=== PATIENT | male | born 1950 | race Caucasian/White ===

== ENCOUNTER 2019-06-19 08:38 | Observation (INO) | payer MEDICARE, BC ==
[2019-06-18 13:48] LABS: BASOPHILS % (AUTO) 0.8 % (0-1); EOSINOPHILS # (AUTO) 0.2 X10'3 (0-0.9); HEMATOCRIT 44.4 % (42.0-52.0); HEMOGLOBIN 14.8 g/dl (14.0-17.9); LYMPHOCYTES # (AUTO) 1.9 X10'3 (1.1-4.8); LYMPHOCYTES % (AUTO) 29.5 % (21-51); MEAN CORPUSCULAR HEMOGLOBIN 30.7 PG (27.0-31.0); MEAN CORPUSCULAR HGB CONC 33.4 g/dL (33.0-36.5); MEAN CORPUSCULAR VOLUME 91.9 FL (78-98); MEAN PLATELET VOLUME 9.3 FL (7.4-10.4); MONOCYTES # (AUTO) 0.5 X10'3 (0-0.9); MONOCYTES % (AUTO) 7.4 % (2-12); NEUTROPHILS # (AUTO) 3.7 X10'3 (1.8-7.7); NEUTROPHILS % (AUTO) 58.3 % (42-75); PLATELET COUNT 207 X10'3 (140-440); RED BLOOD COUNT 4.83 X10'6 (4.70-6.10); RED CELL DISTRIBUTION WIDTH 13.7 % (11.5-14.5); WHITE BLOOD COUNT 6.3 X10'3 (4.5-11.0)
[2019-06-18 13:52] LABS: ALBUMIN 3.9 G/DL (3.4-5.0); ANION GAP 9 (8-16); BLOOD UREA NITROGEN 15 MG/DL (7-18); BUN/CREATININE RATIO 17.6 (5.4-32.0); CALCIUM 8.7 MG/DL (8.5-10.1); CHLORIDE 108 MMOL/L (99-107); CREATININE 0.85 MG/DL (0.60-1.10); GLUCOSE 97 MG/DL (70-104); POTASSIUM 3.7 MMOL/L (3.5-5.1); SODIUM 145 MMOL/L (135-145); TOTAL CARBON DIOXIDE 28.2 MMOL/L (24-32); eGFR 89 ML/MIN
[2019-06-18 13:56] LABS: PARTIAL THROMBOPLASTIN TIME 24 SECONDS (22-32)
[2019-06-19] VITALS (11 sets, daily range): BP systolic 120–189; BP diastolic 53–99
[~2019-06-19] VITALS: Ht 185.4 cm; Wt 100.6 kg
[~2019-06-19 08:38] MED LIST: ASPI81TA44 PO; ATOR10TA87 PO; CITA20TA28 PO; ESOM40CA PO; HCTZ25T PO; ISOS30TA9 PO; METO50TA7 PO; TRAM50TA2 PO; VALS1TAB2 PO; ZOLP12.543 PO
[2019-06-19] MEDS ORDERED: diphenhydrAMINE 25mg capsule PO PRN (08:50)
[2019-06-19] MEDS ORDERED: LORazepam 0.5 MG tablet PO PRN (08:50)
[2019-06-19] MEDS ORDERED: VALS1TAB79 PO (09:07)
[2019-06-19] MEDS ORDERED: LIDOcaine/PRILOcaine 5gm cream TP ONE (09:40)
[2019-06-19] MEDS: normal saline 1,000 ML IV SCH ×2 (09:43→18:50)
[2019-06-19] MEDS ORDERED: fentaNYL/PF 50MCG/1 ML 2ML syringe ONE (13:24)
[2019-06-19] MEDS ORDERED: iohexol 350MG/ML 100ml bottle IV ONE ×3 (13:24→15:09)
[2019-06-19] MEDS ORDERED: iohexol 350 MG/ML 50ML vial IV ONE (13:24)
[2019-06-19] MEDS ORDERED: LIDOcaine 1% (10mg/ml)w/preservative injection 20ml MDV ONE (13:24)
[2019-06-19] MEDS ORDERED: midazolam 2 mg/2 ml injection ONE (13:24)
[2019-06-19] MEDS ORDERED: heparin 1,000unit/ml 10ml vial 10 ML ONE (13:24)
[2019-06-19] MEDS ORDERED: nitroGLYCERIN-Tridil 50MG/D5W 250 ML IV ONE (13:24)
[2019-06-19] MEDS ORDERED: verapamil 2.5 mg/ml inj IV ONE (13:57)
[2019-06-19] MEDS ORDERED: heparin 25,000 UNIT/250ml bag 250 ML IV ONE (14:32)
[2019-06-19] MEDS ORDERED: heparin 1,000 UNITS/NS 500ml 500 ML ONE (15:10)
[2019-06-19] MEDS ORDERED: atropine 0.1mg/ml 10ml syringe ONE (15:30)
[2019-06-19] MEDS ORDERED: ticagrelor 90mg tablet ONE (15:55)
--- NOTE | 2019-06-19 18:29 | NUR ---
I have received report from ELISABETH PATE and had the opportunity to ask questions and assume patient care. AWAITING PATIENT ARRIVAL FROM SHORT STAY.
--- NOTE | 2019-06-19 18:30 | NUR ---
Pt transferred to Tele with belongings, report given.
--- NOTE | 2019-06-19 19:03 | NUR ---
Patient in room . I have received report from ELISABETH Steinberg and had the opportunity to ask questions and assume patient care. The patient arrived to telemetry at 1850. He is awake and stable. 2cc of air was taken out the fem stop for the radial artery. Will continue to monitor.
[2019-06-19 19:05] LABS: ISTAT HGB ART 13.9 g/dl (14.0-18.0); ISTAT Hct ART 41 %PCV (42-52); ISTAT O2 SATURATION ARTERIAL 95 % (95-98); ISTAT SOURCE ART
[2019-06-19 19:05] LABS: ISTAT Hct MIX 40 %PCV (42-52); ISTAT O2 SATURATION MIX VENOUS 71 % (60-80); ISTAT SOURCE MIX
--- NOTE | 2019-06-19 19:23 | NUR ---
Per Short Stay Nurse Pillar, RN Heparin was D/C at 1800.
--- NOTE | 2019-06-19 20:19 | NUR ---
Additional pressure held with 3cc air until 1999 on right radial artery.
--- NOTE | 2019-06-19 20:27 | NUR ---
Radial Cuff off @ 2014. Manual pressure 5 mins. No signs of bleeding. Pulses normal, will continue to monitor.
--- NOTE | 2019-06-19 23:07 | NUR ---
Notified by certified phlebotomy technician at 2307 that patient had several junctional beats and HR dipped down into 30s nonsustained. Will continue to monitor closely.
--- NOTE | 2019-06-20 00:44 | NUR ---
Attempted to call [facility] answering service. HR decreased to 31 nonsustained. Will try to call again.
--- NOTE | 2019-06-20 00:54 | NUR ---
Reached Dr. Villalta's answering service and spoke with Sugar and notified of patient condition. Will try again in 20 minutes if no return phone call.
--- NOTE | 2019-06-20 00:58 | NUR ---
Pawan returned phone call regarding patient heart rate. No new orders at this time. Will continue to monitor closely.
--- NOTE | 2019-06-20 01:20 | NUR ---
EKG 0115 2.6 sec pause, sinus bradycardia 42.
[2019-06-20 02:00] VITALS: BP 143/70
--- NOTE | 2019-06-20 04:32 | NUR ---
Student documentation: I have reviewed and agree with all interventions, assessments performed and documented by ELISABETH Vigil.
[2019-06-20 05:21] LABS: BASOPHILS % (AUTO) 0.4 % (0-1); EOSINOPHILS # (AUTO) 0.2 X10'3 (0-0.9); EOSINOPHILS % (AUTO) 2.5 % (0-6); HEMATOCRIT 44.1 % (42.0-52.0); HEMOGLOBIN 14.9 g/dl (14.0-17.9); LYMPHOCYTES # (AUTO) 1.4 X10'3 (1.1-4.8); LYMPHOCYTES % (AUTO) 17.4 % (21-51); MEAN CORPUSCULAR HEMOGLOBIN 30.5 PG (27.0-31.0); MEAN CORPUSCULAR HGB CONC 33.9 g/dL (33.0-36.5); MEAN CORPUSCULAR VOLUME 89.9 FL (78-98); MEAN PLATELET VOLUME 9.1 FL (7.4-10.4); MONOCYTES # (AUTO) 0.7 X10'3 (0-0.9); NEUTROPHILS # (AUTO) 5.9 X10'3 (1.8-7.7); NEUTROPHILS % (AUTO) 71.7 % (42-75); PLATELET COUNT 188 X10'3 (140-440); RED CELL DISTRIBUTION WIDTH 13.7 % (11.5-14.5); WHITE BLOOD COUNT 8.2 X10'3 (4.5-11.0)
[2019-06-20 05:45] LABS: ALBUMIN 3.6 G/DL (3.4-5.0); ANION GAP 10 (8-16); BLOOD UREA NITROGEN 13 MG/DL (7-18); BUN/CREATININE RATIO 15.3 (5.4-32.0); CALCIUM 8.8 MG/DL (8.5-10.1); CHLORIDE 109 MMOL/L (99-107); CREATININE 0.85 MG/DL (0.60-1.10); GLUCOSE 105 MG/DL (70-104); POTASSIUM 3.4 MMOL/L (3.5-5.1); SODIUM 145 MMOL/L (135-145); TOTAL CARBON DIOXIDE 25.8 MMOL/L (24-32); eGFR 89 ML/MIN
[2019-06-20 06:00] VITALS: BP 130/82
--- NOTE | 2019-06-20 06:15 | NUR ---
Problems reprioritized. Patient report given, questions answered & plan of care reviewed with ELISABETH Young.
--- NOTE | 2019-06-20 06:18 | NUR ---
Patient in room PCU 3025. I have received report from Yaritza BARBER and Bill RN and had the opportunity to ask questions and assume patient care. Pt is awake in bed, all needs met at this time, will continue to monitor.
[2019-06-20] MEDS ORDERED: pantoprazole 40mg Tablet.DR PO SCH (07:30)
[2019-06-20] MEDS ORDERED: HYDROchlorothiazide 12.5mg capsule PO SCH (08:00)
[2019-06-20] MEDS ORDERED: clopidogrel 75mg tablet PO SCH (08:00)
[2019-06-20] MEDS ORDERED: aspirin 325mg tablet, delayed-release (Ecotrin) PO SCH (08:00)
[2019-06-20] MEDS ORDERED: metoprolol succinate 25mg (24-HOUR) SR. Tablet PO SCH (08:00)
[2019-06-20] MEDS ORDERED: atorvastatin 10mg tablet PO SCH (08:00)
[2019-06-20] MEDS ORDERED: losartan 50mg tablet PO SCH (08:00)
[2019-06-20] MEDS ORDERED: ATOR20TA PO (09:29)
[2019-06-20] MEDS ORDERED: TICA90TA PO (09:29)
[2019-06-20] MEDS ORDERED: METO-395 PO (10:20)
--- NOTE | 2019-06-20 11:08 | NUR ---
Pt is stable for discharge per md order, Discharge instructions reviewed w/ pt and spouse, all questions answered, new medication prescription called in to [facility] per pt preference, Tele box 57 removed and returned, PIV dc'ed and clean dry dressing in place, pt wheeled down to lobby with hospital staff, pt discharged to home @ 1100am w/ spouse in private vehicle, all belongings taken with pt at time of discharge.
[2019-06-21] MEDS ORDERED: aspirin 81mg tablet.DR PO SCH (08:00)
== END 2019-06-20 11:00 | disposition home or self-care (01) ==
LOC: SSTAY O 08:38 → PCU 3S 19:14
PROVIDERS: ADMIT Internal Medicine Cardiovascular Disease; ATTEND Internal Medicine Cardiovascular Disease
DX: I25.10 Atherosclerotic heart disease of native coronary artery without angina pectoris (principal); R55 Syncope and collapse; E78.5 Hyperlipidemia, unspecified; R42 Dizziness and giddiness; I10 Essential (primary) hypertension; I47.1 Supraventricular tachycardia; E66.3 Overweight; G47.33 Obstructive sleep apnea (adult) (pediatric); G62.9 Polyneuropathy, unspecified; R06.02 Shortness of breath; R53.83 Other fatigue; F32.9 Major depressive disorder, single episode, unspecified; Z79.899 Other long term (current) drug therapy; Z98.890 Other specified postprocedural states
CPT/HCPCS: 36415; 80048; 82803; 85014; 85025; 85347; 85610; 85730; 87081; 93005; 93460; 96360; 96361; C1725; C1769; C1874; C1892; C1894; C9600; G0378; J0461; J1644; J2001; J2250; J3010; J7030; Q0163; Q9967; 99152; 99153; A4620; J3490

== ENCOUNTER 2019-07-04 11:37 | Outpatient (CLI) | payer MEDICARE, BC ==
[~2019-07-04 11:37] MED LIST changes: -ATOR10TA87 PO; +ATOR20TA PO; -CITA20TA28 PO; -HCTZ25T PO; -ISOS30TA9 PO; +METO-395 PO; -METO50TA7 PO; +TICA90TA PO; -TRAM50TA2 PO; -VALS1TAB2 PO; +VALS1TAB79 PO; -ZOLP12.543 PO
[2019-07-04 12:16] LABS: ANION GAP 10 (8-16); BLOOD UREA NITROGEN 11 MG/DL (7-18); BUN/CREATININE RATIO 12.5 (5.4-32.0); CALCIUM 9.3 MG/DL (8.5-10.1); CHLORIDE 107 MMOL/L (99-107); CREATININE 0.88 MG/DL (0.60-1.10); GLUCOSE 102 MG/DL (70-104); POTASSIUM 3.8 MMOL/L (3.5-5.1); SODIUM 143 MMOL/L (135-145); TOTAL CARBON DIOXIDE 26.3 MMOL/L (24-32); eGFR 86 ML/MIN
== END 2019-07-04 23:59 | disposition home or self-care (01) ==
LOC: LAB 11:37
PROVIDERS: ATTEND Internal Medicine Cardiovascular Disease
DX: R06.02 Shortness of breath (principal)
CPT/HCPCS: 36415; 80048; 83880

== ENCOUNTER 2020-10-15 06:03 | Day surgery (SDC) | payer MEDICARE, BC ==
[2020-10-14 11:52] LABS: BASOPHILS # (AUTO) 0.1 X10'3 (0-0.2); BASOPHILS % (AUTO) 0.8 % (0-1); EOSINOPHILS # (AUTO) 0.2 X10'3 (0-0.9); EOSINOPHILS % (AUTO) 2.5 % (0-6); HEMATOCRIT 44.7 % (42.0-52.0); LYMPHOCYTES # (AUTO) 1.5 X10'3 (1.1-4.8); LYMPHOCYTES % (AUTO) 21.6 % (21-51); MEAN CORPUSCULAR HEMOGLOBIN 30.5 PG (27.0-31.0); MEAN CORPUSCULAR HGB CONC 33.5 g/dL (33.0-36.5); MEAN CORPUSCULAR VOLUME 91.1 FL (78-98); MEAN PLATELET VOLUME 9.1 FL (7.4-10.4); MONOCYTES # (AUTO) 0.6 X10'3 (0-0.9); MONOCYTES % (AUTO) 8.2 % (2-12); NEUTROPHILS # (AUTO) 4.8 X10'3 (1.8-7.7); NEUTROPHILS % (AUTO) 66.9 % (42-75); PLATELET COUNT 193 X10'3 (140-440); RED BLOOD COUNT 4.91 X10'6 (4.70-6.10); RED CELL DISTRIBUTION WIDTH 13.7 % (11.5-14.5); WHITE BLOOD COUNT 7.1 X10'3 (4.5-11.0)
[2020-10-14 11:59] LABS: ALBUMIN 4.1 G/DL (3.4-5.0); ANION GAP 8 (8-16); BLOOD UREA NITROGEN 19 MG/DL (7-18); BUN/CREATININE RATIO 21.3 (5.4-32.0); CALCIUM 9.4 MG/DL (8.5-10.1); CHLORIDE 108 MMOL/L (99-107); CREATININE 0.89 MG/DL (0.60-1.10); GLUCOSE 102 MG/DL (70-104); POTASSIUM 3.8 MMOL/L (3.5-5.1); SODIUM 146 MMOL/L (135-145); TOTAL CARBON DIOXIDE 30.3 MMOL/L (24-32); eGFR 85 ML/MIN
[2020-10-14 12:04] LABS: PARTIAL THROMBOPLASTIN TIME 25 SECONDS (22-32)
[~2020-10-15] VITALS: Ht 180.3 cm; Wt 96.8 kg
[2020-10-15] VITALS (11 sets, daily range): BP systolic 106–142; BP diastolic 56–79
[~2020-10-15 06:03] MED LIST changes: -ATOR20TA PO; -VALS1TAB79 PO; +VALS1TAB80 PO
[2020-10-15] MEDS ORDERED: ceFAZolin 2gm in dextrose, iso 50 ML IV ONE (06:25)
[2020-10-15] MEDS ORDERED: METO-539 PO (06:49)
[2020-10-15] MEDS ORDERED: CYAN5000 SL (06:51)
[2020-10-15] MEDS ORDERED: ATOR20TA PO (06:53)
[2020-10-15] MEDS ORDERED: METF500T PO (07:00)
[2020-10-15] MEDS ORDERED: CLOP75TA15 PO (07:01)
[2020-10-15] MEDS ORDERED: FLO0.4C PO (07:03)
[2020-10-15] MEDS ORDERED: midazolam 2 mg/2 ml injection ONE ×2 (07:21→08:26)
[2020-10-15] MEDS ORDERED: fentaNYL/PF 50MCG/1 ML 2ML syringe ONE ×3 (07:21→09:18)
[2020-10-15] MEDS ORDERED: LIDOcaine 1% W/epiNEPHrine 1:100,000 20ml vial ONE ×2 (07:21→08:26)
[2020-10-15] MEDS ORDERED: ceFAZolin 1000mg inj ONE (07:22)
[2020-10-15] MEDS ORDERED: vancomycin/NS 1 GM ADD-VANTAGE 250 ML X 1 DOSE IV ONE (11:00)
[2020-10-15] MEDS ORDERED: HYDROcodone/acetaminophen 5mg/325mg tablet PO PRN (11:10)
[2020-10-15] MEDS ORDERED: acetaminophen 325mg tablet PO PRN (11:10)
[2020-10-15] MEDS ORDERED: HYDROcodone/acetaminophen 10/325mg tab PO PRN (11:10)
== END 2020-10-15 15:00 | disposition home or self-care (01) ==
LOC: SSTAY O 06:03
PROVIDERS: ATTEND Internal Medicine Cardiovascular Disease
DX: I49.5 Sick sinus syndrome (principal); I25.10 Atherosclerotic heart disease of native coronary artery without angina pectoris; I10 Essential (primary) hypertension; E78.5 Hyperlipidemia, unspecified; I48.0 Paroxysmal atrial fibrillation; G47.33 Obstructive sleep apnea (adult) (pediatric); E11.40 Type 2 diabetes mellitus with diabetic neuropathy, unspecified; F32.9 Major depressive disorder, single episode, unspecified; E66.9 Obesity, unspecified; Z68.31 Body mass index [BMI] 31.0-31.9, adult; G62.9 Polyneuropathy, unspecified; Z95.5 Presence of coronary angioplasty implant and graft; Z79.84 Long term (current) use of oral hypoglycemic drugs; Z79.01 Long term (current) use of anticoagulants; Z79.899 Other long term (current) drug therapy; Z98.890 Other specified postprocedural states; Z82.49 Family history of ischemic heart disease and other diseases of the circulatory system; Z83.6 Family history of other diseases of the respiratory system
CPT/HCPCS: 33208; 36415; 71046; 80048; 82948; 85025; 85610; 85730; 93005; 99152; 99153; C1785; C1894; C1898; J0690; J2250; J3010; J3370; A4565; A4620; A6449

== ENCOUNTER 2021-01-06 16:40 | Emergency (ER) | payer OTHER, MEDICARE, BC ==
[~2021-01-06] VITALS: Ht 180.3 cm; Wt 95.5 kg
[~2021-01-06 16:40] MED LIST changes: -ASPI81TA44 PO; +ATOR20TA PO; +CLOP75TA15 PO; +CYAN5000 SL; -ESOM40CA PO; +FLO0.4C PO; +METF500T PO; -METO-395 PO; +METO-539 PO; -TICA90TA PO
[2021-01-06 17:55] LABS: BASOPHILS # (AUTO) 0.1 X10'3 (0-0.2); BASOPHILS % (AUTO) 0.6 % (0-1); EOSINOPHILS # (AUTO) 0.1 X10'3 (0-0.9); EOSINOPHILS % (AUTO) 0.8 % (0-6); HEMATOCRIT 43.3 % (42.0-52.0); HEMOGLOBIN 14.4 g/dl (14.0-17.9); LYMPHOCYTES # (AUTO) 0.8 X10'3 (1.1-4.8); LYMPHOCYTES % (AUTO) 8.5 % (21-51); MEAN CORPUSCULAR HEMOGLOBIN 30.1 PG (27.0-31.0); MEAN CORPUSCULAR HGB CONC 33.1 g/dL (33.0-36.5); MEAN CORPUSCULAR VOLUME 90.8 FL (78-98); MEAN PLATELET VOLUME 8.6 FL (7.4-10.4); MONOCYTES # (AUTO) 0.4 X10'3 (0-0.9); MONOCYTES % (AUTO) 4.8 % (2-12); NEUTROPHILS % (AUTO) 85.3 % (42-75); PLATELET COUNT 223 X10'3 (140-440); RED BLOOD COUNT 4.77 X10'6 (4.70-6.10); RED CELL DISTRIBUTION WIDTH 13.9 % (11.5-14.5); WHITE BLOOD COUNT 9.3 X10'3 (4.5-11.0)
[2021-01-06 18:09] LABS: ALANINE AMINOTRANSFERASE 46 U/L (12-78); ALBUMIN 4.1 G/DL (3.4-5.0); ALBUMIN/GLOBULIN RATIO 1.3 (1.1-1.5); ALKALINE PHOSPHATASE 63 IU/L (46-116); ANION GAP 11 (8-16); ASPARTATE AMINO TRANSFERASE 36 U/L (10-37); BLOOD UREA NITROGEN 24 MG/DL (7-18); CALCIUM 9.1 MG/DL (8.5-10.1); CHLORIDE 107 MMOL/L (99-107); GLUCOSE 125 MG/DL (70-104); POTASSIUM 3.9 MMOL/L (3.5-5.1); SODIUM 146 MMOL/L (135-145); TOTAL CARBON DIOXIDE 27.9 MMOL/L (24-32); TOTAL PROTEIN 7.3 G/DL (6.4-8.2); eGFR 74 ML/MIN
[2021-01-06] MEDS ORDERED: normal saline 1000ml 1,000 ML IV ONE ×2 (18:35→20:10)
[2021-01-06] MEDS ORDERED: ondansetron/PF 4mg/2ml inj IV ONE (18:35)
[2021-01-06] MEDS ORDERED: morphine 4 MG/ML inj SYRINge IV ONE (18:35)
--- NOTE | 2021-01-06 19:54 | NUR ---
yaneth standing at bedside attempting to urinate, yaneth received 1 liter of ns
--- NOTE | 2021-01-06 20:06 | NUR ---
patietn unable to void
[2021-01-06 21:51] LABS: CLARITY,URINE SLIGHTLY CLOUDY (Clear); COLOR,URINE YELLOW (Yellow); GLUCOSE, URINE NEGATIVE (Neg); KETONES,URINE 15 mg/dl (Neg); LEUKOCYTE ESTERASE ,URINE NEGATIVE (Neg); NITRITES, URINE NEGATIVE (Neg); OCCULT BLOOD,URINE SMALL (Neg); PH,URINE 5.5 (4.8-8.0); PROTEIN,URINE NEGATIVE (Neg); UROBILINOGEN,URINE 0.2 E.U/dL (0.2-1.0)
[2021-01-06 22:05] LABS: UA COLLECTION TYPE STRAIGHT CATH
[2021-01-06 22:06] LABS: WBC,URINE 0-4 /HPF (0-4)
[2021-01-06 22:07] LABS: BACTERIA,URINE NONE SEEN /HPF (Neg); SQUAMOUS EPITHELIAL CELL,UR FEW /LPF (FEW)
[2021-01-06] MEDS ORDERED: HYDR-3965 PO (22:14)
[2021-01-06] MEDS ORDERED: ONDA4TAB6 PO (22:14)
[2021-01-06] MEDS ORDERED: FLO0.4C PO (22:14)
[2021-01-06 22:28] VITALS: BP 137/65
== END 2021-01-06 22:27 | disposition home or self-care (01) ==
LOC: ER 16:40
DX: N20.1 Calculus of ureter (principal); R10.84 Generalized abdominal pain; R11.0 Nausea; I25.10 Atherosclerotic heart disease of native coronary artery without angina pectoris; G89.29 Other chronic pain; Z95.0 Presence of cardiac pacemaker; Z79.899 Other long term (current) drug therapy
CPT/HCPCS: 36415; 74176; 80053; 81001; 85025; 96361; 96374; 96375; 99284; J2270; J2405; J7030

== ENCOUNTER 2025-01-22 18:34 | Emergency (ER) | payer OTHER, MEDICARE, BC ==
[~2025-01-22] VITALS: Ht 177.8 cm; Wt 96.8 kg
[~2025-01-22 18:34] MED LIST changes: -FLO0.4C PO; +ONDA4TAB6 PO; +TAMS-55 PO
[2025-01-22] MEDS: HYDROcodone/acetaminophen 5mg/325mg tablet PO ONE (20:34)
[2025-01-22 21:37] VITALS: BP 138/77; PULSE 80; RESP 16; TEMP 97.3; O2SAT 98
[2025-01-22] MEDS ORDERED: HYDR-3965 PO (21:39)
== END 2025-01-22 21:41 | disposition home or self-care (01) ==
LOC: ER 18:35
DX: S20.212A Contusion of left front wall of thorax, initial encounter (principal); I25.10 Atherosclerotic heart disease of native coronary artery without angina pectoris; Z95.0 Presence of cardiac pacemaker; W19.XXXA Unspecified fall, initial encounter; Y93.89 Activity, other specified; Y92.89 Other specified places as the place of occurrence of the external cause; Y99.8 Other external cause status
CPT/HCPCS: 71046; 71100; 99284